=== PATIENT | male | born 1950 | race Caucasian/White ===

== ENCOUNTER 2019-04-01 12:26 | Outpatient (CLI) | payer MEDICARE ==
[2019-04-01] VITALS (19 sets, daily range): BP systolic 110–155; BP diastolic 48–94; PULSE 91–104
[~2019-04-01] VITALS: Ht 182.9 cm; Wt 99.0 kg
[~2019-04-01 12:26] MED LIST: ANTIVERT 25MG25 MG PO; ASPIRIN E.C. 8181 MG PO; FISH OIL 1000MG1 CAP PO; IBU800 M1 PO; ISORDIL TITRADO30 MG PO; LEVOXYL0.075 MG PO; LIPITOR 40MG TA40 MG PO; LIQUIFILM TEARS15 ML OU; NITROSTAT0.4 MG/TAB SL; PROAIR HFA0.09 MG/AC IH; PROSCAR 5MG5 MG PO; PROTONIX 40MG T40 MG PO; RT SPIRIVA18 MCG IH; SANCTURA20 MG PO; STOOL SOFTENER100 M2 PO; TOPROL XL 50MG50 MG PO; UROXATRAL10 M1 PO; VITAMIN D 1001000 IU PO; ZYRTEC 10MG10 MG PO
[2019-04-01] MEDS ORDERED: [UNRECOGNIZED DRUG - OTHER] TP (13:13)
[2019-04-01 14:13] LABS: INR 1.2 (0.8-3.0); PROTHROMBIN TIME 14.4 SECONDS (9.7-12.8)
--- NOTE | 2019-04-01 14:30 | NUR ---
PT TAKEN BY WHEELCHAIR TO CT . PT POSITIONED ON THE TABLE AND IMAGES TAKEN AND SENT.
--- NOTE | 2019-04-01 14:53 | NUR ---
PT WAS GIVEN 0.5 MG VERSED AND 25 MCG FENTANYL
--- NOTE | 2019-04-01 15:15 | NUR ---
PROCEDURE COMPLETED. MONITORING EQUIPMENT REMOVED. PT ASSISTED INTO WHEELCHAIR AND TAKEN TO RAD HOLDING.
--- NOTE | 2019-04-01 16:39 | NUR ---
Pt arrived to room 9,report from Nico rashid.Pt observed alert and orientated x 3,respirations even and unlabored.
--- NOTE | 2019-04-01 17:51 | NUR ---
Pt escorted out via wheelchair by this nurse.
== END 2019-04-01 17:54 | disposition home or self-care (01) ==
LOC: COL.RAD 12:26
PROVIDERS: Radiology Diagnostic Radiology
DX: C18.9 Malignant neoplasm of colon, unspecified (principal); K76.89 Other specified diseases of liver
CPT/HCPCS: J2250; J3010; Q9967

== ENCOUNTER 2019-05-28 09:35 | Emergency (ER) | payer MEDICARE ==
[~2019-05-28] VITALS: Ht 175.3 cm; Wt 77.3 kg
[~2019-05-28 09:35] MED LIST changes: +[UNRECOGNIZED DRUG - OTHER] TP
[2019-05-28 09:37] VITALS: TEMP 99.1
[2019-05-28 10:04] LABS: INR 1.1 (0.8-3.0); PROTHROMBIN TIME 12.4 SECONDS (9.7-12.8)
[2019-05-28 10:06] LABS: PARTIAL THROMBOPLASTIN TIME 24.1 SECONDS (26.0-37.0)
[2019-05-28 10:08] LABS: MEAN CELL VOLUME 87 fl (80.0-100.0); MEAN CORPUSCULAR HGB CONC 31 g/dl (33.0-37.0); MEAN PLATELET VOLUME 12.9 fl (7.4-10.4); PLATELET COUNT 144 K/mm3 (130-400); REDCELL DISTRIBUTION WIDTH-CV 17.3 % (11.5-14.5)
[2019-05-28 10:11] LABS: HEMATOCRIT 30.4 % (42.0-52.0); HEMOGLOBIN 9.4 g/dl (13.5-18.0); MEAN CORPUSCULAR HEMOGLOBIN 27 pg (27.0-31.0)
[2019-05-28 10:14] LABS: ALANINE AMINOTRANSFERASE 104 U/L (4-49); ALBUMIN 3.1 gm/dL (3.5-5.0); ALKALINE PHOSPHATASE 344 U/L (50-136); ANION GAP 8 mmol/L (7-16); AST,SGOT 90 U/L (15-37); BILIRUBIN,TOTAL 0.6 mg/dL (0.0-1.0); BLOOD UREA NITROGEN 16 mg/dL (9-20); CALCIUM 8.2 mg/dL (8.4-10.2); CARBON DIOXIDE 27 mmol/L (22-30); CHLORIDE 102 mmol/L (98-107); CREATININE, serum 0.78 (0.66-1.25); GLUCOSE 122 mg/dL (74-106); LIPASE 127 U/L (23-300); POTASSIUM 3.1 mmol/L (3.4-5.0); SODIUM 136 mmol/L (137-145); TOTAL PROTEIN 5.5 gm/dL (6.4-8.2)
[2019-05-28 10:34] LABS: TROPONIN-I < 0.012 ng/mL (0.000-0.035)
[2019-05-28 11:01] LABS: BAND 10 % (0-10); LYMPHOCYTE 5 % (20.0-51.0); METAMYELOCYTE 1 % (0-0); NEUTROPHILS 79 % (42.0-75.2); OVALOCYTES 1+; PLATELET ESTIMATE NORMAL (NORMAL); SCHISTOCYTES 1+
[2019-05-28 13:43] VITALS: BP 162/87; PULSE 87
== END 2019-05-28 13:41 | disposition home or self-care (01) ==
LOC: COL.ER 09:35
PROVIDERS: Emergency Medicine
DX: R07.89 Other chest pain (principal); M84.411A Pathological fracture, right shoulder, initial encounter for fracture; M84.48XA Pathological fracture, other site, initial encounter for fracture; J44.9 Chronic obstructive pulmonary disease, unspecified; I25.10 Atherosclerotic heart disease of native coronary artery without angina pectoris; R29.810 Facial weakness; C18.9 Malignant neoplasm of colon, unspecified; C78.7 Secondary malignant neoplasm of liver and intrahepatic bile duct; C79.51 Secondary malignant neoplasm of bone; C79.89 Secondary malignant neoplasm of other specified sites; Z86.711 Personal history of pulmonary embolism; Z86.718 Personal history of other venous thrombosis and embolism; Z95.5 Presence of coronary angioplasty implant and graft; Z79.82 Long term (current) use of aspirin
CPT/HCPCS: J3010; J3480; J7030; Q9967